=== PATIENT | male | born 1995 | race Two or more races ===

== ENCOUNTER 2019-11-20 20:01 | Emergency (ER) | payer MEDICAID ==
[~2019-11-20] VITALS: Ht 172.7 cm; Wt 68.0 kg
[2019-11-20 20:10] VITALS: BP 129/86
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
[2019-11-20] MEDS ORDERED: IBUPROFEN 600 MG TABLET PO ONE ×2 (20:28→20:30)
--- NOTE | 2019-11-20 20:46 | NUR ---
Patient discharged to home in stable condition. Written and verbal after care instructions given. Patient verbalizes understanding of instruction and rx. PT ambulated with steady gait. vss.
== END 2019-11-20 20:48 | disposition home or self-care (01) ==
LOC: ER 20:09
DX: S16.1XXA Strain of muscle, fascia and tendon at neck level, initial encounter (principal); V49.59XA Passenger injured in collision with other motor vehicles in traffic accident, initial encounter; Y93.89 Activity, other specified; Y92.488 Other paved roadways as the place of occurrence of the external cause; Y99.8 Other external cause status